=== PATIENT | female | born 1965 | race Caucasian/White ===

== ENCOUNTER 2017-02-28 16:34 | Emergency (ER) | payer OTHER ==
[2017-02-28 17:18] VITALS: BP 111/71
--- NOTE | 2017-02-28 17:35 | EDM.PDOC ---
ED HPI GENERAL MEDICAL PROBLEM - General Chief Complaint: Skin Complaint Stated Complaint: FISH HOOK IN TOE Time Seen by Provider: 02/28/17 17:35 Source of Information: Reports: Patient, Family History Limitations: Reports: No Limitations - History of Present Illness INITIAL COMMENTS - FREE TEXT/NARRATIVE: PT HAS A FISHOOK IN THE RT GREAT TOE. sHE WAS IN HER LIVING ROOM AND SOMEHOW STEPPED ON THE HOOK AND PUSHED IT INTO THE TOE. Onset: Today Duration: Hour(s): Location: Reports: Lower Extremity, Right Associated Symptoms: Reports: No Other Symptoms Right Feet Pain Score (Numeric/FACES): 3 - Related Data Allergies Allergy/AdvReac Type Severity Reaction Status Date / Time codeine Allergy Excitabilit Verified 02/28/17 17:16 y Home Meds: Home Meds Escitalopram Oxalate [Escitalopram Oxalate] 10 mg PO DAILY 02/28/17 [History] Levothyroxine 112 mcg PO ACBREAKFAST 02/28/17 [History] Lisinopril 5 mg PO DAILY 02/28/17 [History] Metoprolol Tartrate 25 mg PO BID 02/28/17 [History] Montelukast [Singulair] 10 mg PO BEDTIME 02/28/17 [History] Pravastatin [Pravachol] 40 mg PO DAILY 02/28/17 [History] buPROPion [Wellbutrin] 200 mg PO BID 02/28/17 [History] Past Medical History HEENT History: Reports: Impaired Vision Respiratory History: Reports: Asthma Endocrine/Metabolic History: Reports: Diabetes, Type II, Other (See Below) Other Endocrine/Metabolic History: hashimotos - Infectious Disease History Infectious Disease History: Reports: Chicken Pox, Shingles - Past Surgical History Cardiovascular Surgical History: Reports: Coronary Artery Bypass GI Surgical History: Reports: Appendectomy, Cholecystectomy, Hernia Repair/Other Female Surgical History: Reports: Hysterectomy Social & Family History - Tobacco Use Smoking Status *Q: Former Smoker Used Tobacco, but Quit: Yes Month Tobacco Last Used: many years ago - Caffeine Use Caffeine Use: Reports: Coffee - Recreational Drug Use Recreational Drug Use: No ED ROS GENERAL - Review of Systems Review Of Systems: See Below Constitutional: Reports: No Symptoms HEENT: Reports: No Symptoms Respiratory: Reports: No Symptoms Cardiovascular: Reports: No Symptoms Endocrine: Reports: No Symptoms GI/Abdominal: Reports: No Symptoms : Reports: No Symptoms Musculoskeletal: Reports: Other ( FISHOOK IN THE RT GREAT TOE. ) Skin: Reports: No Symptoms Neurological: Reports: No Symptoms ED EXAM, SKIN/RASH Exam: See Below Text/Narrative:: PT HAS FISHOOK IN THE RT GREAT TOE. Exam Limited By: No Limitations General Appearance: Alert, Anxious Ears: Normal TMs Nose: Normal Inspection Throat/Mouth: Normal Inspection Head: Atraumatic Neck: Normal Inspection Respiratory/Chest: No Respiratory Distress Extremities: Other ( RT GREAT TOE HAS A FISH HOOK IN IT. THE HOOK WAS PUSHED THROUGH AFTER IT WAS INFILTRATED WITH LIDOCAINE. tHE HOOK WAS REMOVED WITHOUT DIFFICULTY. tHE WOUND WAS DRESSED WITH BACATRACIN AND GIVEN A TETANUS BOOSTER. ) Course - Vital Signs Last Recorded V/S: Last Vital Signs Temp 36.3 C 02/28/17 17:17 Pulse 77 02/28/17 17:17 Resp 16 02/28/17 17:17 BP 111/71 02/28/17 17:17 Pulse Ox 94 L 02/28/17 17:17 - Orders/Labs/Meds Orders: Active Orders 24 hr Category Date Time Status Vaccines to be Administered [RC] PER UNIT ROUTINE Care 02/28/17 17:45 Ordered Diphth,Pertuss(Acell),Tet Vac [Adacel] Med 02/28/17 17:45 Once 0.5 ml IM .ONCE ONE Meds: Medications Discontinued Medications Generic Name Dose Route Start Last Admin Trade Name Reinaldoq PRN Reason Stop Dose Admin Bacitracin 1 dose 02/28/17 17:44 Bacitracin Oint 1 Gm TOP 02/28/17 17:45 ONETIME ONE Lidocaine HCl 5 ml 02/28/17 17:34 Xylocaine-Mpf 1% INJECT 02/28/17 17:35 ONETIME ONE Departure - Departure Time of Disposition: 17:50 Disposition: Home, Self-Care 01 Condition: Fair Clinical Impression: Foreign body foot/toe - Discharge Information Forms: ED Department Discharge - My Orders Last 24 Hours: My Active Orders 02/28/17 17:45 Vaccines to be Administered [RC] PER UNIT ROUTINE Diphth,Pertuss(Acell),Tet Vac [Adacel] 0.5 ml IM .ONCE ONE - Assessment/Plan Last 24 Hours: My Active Orders 02/28/17 17:45 Vaccines to be Administered [RC] PER UNIT ROUTINE Diphth,Pertuss(Acell),Tet Vac [Adacel] 0.5 ml IM .ONCE ONE
[2017-02-28] MEDS ORDERED: Bacitracin Oint 1 GM U/D Packet TOP ONE (17:44)
[2017-02-28] MEDS ORDERED: Diphtheria,Pertussis(Acell),Tetanus Vaccine 0.5 ML SDV IM ONE (17:45)
== END 2017-02-28 18:07 | disposition home or self-care (01) ==
LOC: JP.ED 16:34
DX: S90.451A Superficial foreign body, right great toe, initial encounter (principal); J45.909 Unspecified asthma, uncomplicated; E11.9 Type 2 diabetes mellitus without complications; Z23 Encounter for immunization; Z88.5 Allergy status to narcotic agent; Z79.899 Other long term (current) drug therapy; Z90.49 Acquired absence of other specified parts of digestive tract; Z90.710 Acquired absence of both cervix and uterus; Z95.1 Presence of aortocoronary bypass graft; Z98.890 Other specified postprocedural states; Z87.891 Personal history of nicotine dependence; W45.8XXA Other foreign body or object entering through skin, initial encounter
CPT/HCPCS: 90471; 90715; 99283-25